=== PATIENT | male | born 1980 | race Caucasian/White ===

== ENCOUNTER 2021-11-16 11:22 | Emergency (ER) | payer OTHER ==
[2021-11-16] MEDS: Bupivacaine 0.5% 30 ML SDV INFILT ONE (12:40)
[2021-11-16] MEDS: Bacitracin Oint 1 GM U/D Packet TOP ONE (13:38)
== END 2021-11-16 13:52 | disposition home or self-care (01) ==
LOC: JP.ED 11:22
DX: S61.022A Laceration with foreign body of left thumb without damage to nail, initial encounter (principal); Z79.899 Other long term (current) drug therapy; W20.8XXA Other cause of strike by thrown, projected or falling object, initial encounter; W26.8XXA Contact with other sharp object(s), not elsewhere classified, initial encounter
CPT/HCPCS: 12002; 73140; 99282; J3490